=== PATIENT | female | born 1975 | race Caucasian/White ===

== ENCOUNTER 2018-08-19 17:53 | Emergency (ER) | payer BC ==
[2018-08-19 18:20] VITALS: BP 136/93
[2018-08-19] MEDS ORDERED: Ketorolac 60 MG/2 ML SDV IM ONE (19:36)
--- NOTE | 2018-08-19 19:40 | EDM.PDOC ---
ED HPI GENERAL MEDICAL PROBLEM - General Chief Complaint: Neck Problem Stated Complaint: BACK PAIN NEEDS MEDS Time Seen by Provider: 08/19/18 19:15 Source of Information: Reports: Patient History Limitations: Reports: No Limitations - History of Present Illness INITIAL COMMENTS - FREE TEXT/NARRATIVE: His is a 43-year-old female. She has severe pain in her upper extremity. She says it feels like it did when he had diffuse her C6-C7 vertebrae back in 2013. She says she has sharp pain within a dull throbbing pain that seems to run down into her ventral forearm and occasionally she gets numbness and tingling in her ring and middle finger. The only relief she seems to get this when she takes her right arm and puts it up and rested up over her head. She saw a chiropractor 2 yesterday who told her he thought she had a ruptured disc. She went and saw a local provider who ordered an MRI of her cervical spine. Apparently she got a Toradol shot yesterday that seemed to take the edge off the pain but did not make the pain go away. She is back tonight because she is having continued pain in the right upper extremity and her right side of her neck. I looked up the MRI of her cervical spine that showed diffuse degenerative changes in all aspects of her cervical spine if findings much worse than they were from her previous MRI of her cervical spine. The area of more concern is C5 -C6 C6-C7 where she seems to have moderate neural foraminal stenosis on the right. Above this she has moderate left-sided neural foraminal stenosis but she isn't having no left upper extremity symptoms. Neck Pain Score (Numeric/FACES): 10 - Related Data Allergies Allergy/AdvReac Type Severity Reaction Status Date / Time codeine Allergy Other Verified 01/19/16 07:07 topiramate [From Topamax] Allergy Other Verified 01/19/16 07:07 Home Meds: Home Meds Albuterol Sulfate [Proair Hfa] 2 puff INH ASDIRECTED 08/19/18 [History] Aspirin [Halfprin] 81 mg PO DAILY 08/19/18 [History] Celecoxib 100 mg PO DAILY 08/19/18 [History] Cyclobenzaprine [Flexeril] 10 mg PO ASDIRECTED 08/19/18 [History] Diethylpropion HCl [Diethylpropion] 25 mg PO DAILY 08/19/18 [History] Ibuprofen [Motrin] 600 mg PO ASDIRECTED 08/19/18 [History] Insulin Glargine,Hum.Rec.Anlog [Toujeo Solostar] 20 unit INJECT DAILY 08/19/18 [ History] LORazepam [Ativan] 1 mg PO DAILY PRN 08/19/18 [History] Liraglutide [Victoza] 18 mg INJECT DAILY 08/19/18 [History] Lisinopril 5 mg PO DAILY 08/19/18 [History] Loratadine [Claritin] 10 mg PO DAILY 08/19/18 [History] Phentermine HCl 30 mg PO DAILY 08/19/18 [History] Propranolol HCl [Inderal Xl] 80 mg PO DAILY 08/19/18 [History] Venlafaxine [Effexor] 150 mg PO DAILY 08/19/18 [History] Zolpidem Tartrate [Ambien] 5 mg PO ASDIRECTED 08/19/18 [History] atorvaSTATin Calcium [Lipitor] 20 mg PO DAILY 08/19/18 [History] metFORMIN [Glucophage XR] 2,000 mg PO DAILY 08/19/18 [History] predniSONE [Prednisone] 20 mg PO ASDIRECTED 08/19/18 [History] traMADol [Ultram] 50 mg PO Q6H PRN #20 tab 08/19/18 [Rx] Past Medical History Musculoskeletal History: Reports: Other (See Below) Other Musculoskeletal History: C6-7 fusion Psychiatric History: Reports: Anxiety, Depression Endocrine/Metabolic History: Reports: Diabetes, Type II - Past Surgical History Female Surgical History: Reports: Section, Tubal Ligation Musculoskeletal Surgical History: Reports: Carpal Tunnel Social & Family History - Tobacco Use Smoking Status *Q: Former Smoker Used Tobacco, but Quit: Yes Month/Year Tobacco Last Used: 1 yr - Caffeine Use Caffeine Use: Reports: Coffee, Soda, Tea - Recreational Drug Use Recreational Drug Use: No ED ROS GENERAL - Review of Systems Review Of Systems: See Below Constitutional: Denies: Fever, Chills HEENT: Reports: No Symptoms Respiratory: Reports: No Symptoms Cardiovascular: Reports: No Symptoms Endocrine: Reports: No Symptoms GI/Abdominal: Reports: No Symptoms : Reports: No Symptoms Musculoskeletal: Reports: Neck Pain, Arm Pain Skin: Reports: No Symptoms Neurological: Reports: Other (Radicular symptoms in the right upper extremity) Psychiatric: Reports: No Symptoms Hematologic/Lymphatic: Reports: No Symptoms ED EXAM, UPPER BACK/NECK PAIN - Physical Exam Exam: See Below Exam Limited By: No Limitations General Appearance: Alert, WD/WN, Mild Distress Eye Exam: Bilateral Eye: Normal Inspection Ears Exam: Normal External Exam Nose Exam: Normal Inspection Throat/Mouth Exam: Normal Inspection, Normal Lips, Normal Voice, No Airway Compromise Head Exam: Normocephalic Neck Exam: Other (She is markedly tender at the base of the right side of her neck with palpation though I cannot reproduce the pain that runs down her right arm, she has no midline spine tenderness and she does not appear to have left sided neck tenderness. She does move her neck rotation and lateral bending very carefully but she will do it.) Cardiovascular/Respiratory: Regular Rate, Rhythm, No Respiratory Distress Back Exam: Full Range of Motion Extremities: Normal Inspection, Normal Range of Motion, Other (She complains of a dull throbbing pain that runs down her right arm though she is a little unspecific as to were runs, sometimes seems to run down the dorsal side of her arm to her forearm and sometimes to the axilla into the ventral side. She still appears to have sensation in her fingertips and no particular numbness and tingling presently in the ER. She still has full function of her right upper extremity though she states it feels weak) Neurologic: Alert, Normal Mood/Affect, Oriented x 3 Skin Exam: Normal Color, Warm/Dry Course - Vital Signs Last Recorded V/S: Last Vital Signs Temp 98.4 F 08/19/18 18:18 Pulse 116 H 08/19/18 18:18 Resp 20 08/19/18 18:18 BP 136/93 H 08/19/18 18:18 Pulse Ox 97 08/19/18 18:18 - Orders/Labs/Meds Meds: Medications Discontinued Medications Generic Name Dose Route Start Last Admin Trade Name Aung PRN Reason Stop Dose Admin Ketorolac Tromethamine 60 mg 08/19/18 19:36 08/19/18 19:49 Toradol IM 08/19/18 19:37 60 mg ONETIME ONE Administration - Re-Assessments/Exams Free Text/Narrative Re-Assessment/Exam: 08/19/18 20:13 I went over the MRI scan with the patient explaining to her the degenerative changes that were found and that she will need to follow up with her provider on Wednesday and I suspect he'll probably send her to a neurosurgeon as a consult to see if there is anything they need to do. The patient understands this. Departure - Departure Time of Disposition: 19:37 Disposition: Home, Self-Care 01 Condition: Fair Clinical Impression: Cervical radiculopathy at C8, Cervical radiculopathy due to degenerative joint disease of spine, Right upper limb pain - Discharge Information *PRESCRIPTION DRUG MONITORING PROGRAM REVIEWED*: Not Applicable *COPY OF PRESCRIPTION DRUG MONITORING REPORT IN PATIENT [place]: Not Applicable Prescriptions: traMADol [Ultram] 50 mg PO Q6H PRN #20 tab PRN Reason: Pain Instructions: Cervical Radiculopathy Referrals: Ashwini Kraft MD [Primary Care Provider] - Forms: ED Department Discharge Additional Instructions: Take the tramadol as needed for the pain, use an ice pack to your neck and shoulder to help with the pain, positioning her right arm as often as possible to help relieve and take the edge off the pain. Follow-up with Cecilia Quinones on Wednesday for recheck and review of the MRI, return to the ER if needed
== END 2018-08-19 19:52 | disposition home or self-care (01) ==
LOC: JD.ED 17:53
DX: M54.12 Radiculopathy, cervical region (principal); M47.9 Spondylosis, unspecified; M79.601 Pain in right arm; F41.9 Anxiety disorder, unspecified; F32.9 Major depressive disorder, single episode, unspecified; E11.9 Type 2 diabetes mellitus without complications; Z87.891 Personal history of nicotine dependence; Z88.5 Allergy status to narcotic agent; Z88.8 Allergy status to other drugs, medicaments and biological substances; Z79.82 Long term (current) use of aspirin; Z79.899 Other long term (current) drug therapy; Z79.4 Long term (current) use of insulin
CPT/HCPCS: 96372; 99283; J1885

== ENCOUNTER 2024-06-13 06:15 | Day surgery (SDC) | payer BC ==
[~2024-06-13 06:15] MED LIST: Lactated Ringers 1,000 ML IV SCH; Lidocaine 1%/Sod Bicarbonate in NS 8.4% 1 ML Syringe IDERM PRN; Sodium Chloride 0.9% 10 ML Syringe FLUSH PRN; Sodium Chloride 0.9% 10 ML Syringe FLUSH SCH
[2024-06-13] MEDS: Lactated Ringers 1,000 ML IV SCH (06:23)
[2024-06-13] MEDS ORDERED: Acetaminophen 325 MG Tab PO ONE (06:39)
[2024-06-13] MEDS ORDERED: Dexamethasone 4 MG/ML 5 ML MDV ONE (06:39)
[2024-06-13] MEDS ORDERED: Midazolam 1 MG/ML 2 ML SDV ONE (06:39)
[2024-06-13] MEDS ORDERED: Propofol 200 MG/20 ML SDV ONE ×2 (06:39→08:43)
[2024-06-13] MEDS ORDERED: Rocuronium 50 MG/5 ML Vial ONE ×2 (06:39→08:22)
[2024-06-13] MEDS ORDERED: Lidocaine 1% 5 ML VIAL ONE (06:39)
[2024-06-13] MEDS ORDERED: Ondansetron 4 MG/2 ML SDV ONE (06:39)
[2024-06-13] MEDS ORDERED: fentaNYL 250 MCG/5 ML SDV ONE (06:39)
[2024-06-13 06:46] LABS: BASOPHILS ABSOLUTE AUTO 0.1 K/mm3 (0.0-0.2); BASOPHILS PERCENT AUTO 0.7 % (0.0-1.0); EOSINOPHILS ABSOLUTE AUTO 0.3 K/mm3 (0.0-0.4); EOSINOPHILS PERCENT AUTO 4.6 % (0.0-6.0); HEMATOCRIT 38.9 % (37.0-47.0); HEMOGLOBIN 12.8 gm/dl (12.0-16.0); IMMATURE GRAN ABSOLUTE AUTO 0.05 K/mm3 (0.00-0.05); IMMATURE GRAN PERCENT AUTO 0.7 % (0.0-0.4); LYMPHOCYTES ABSOLUTE AUTO 2.2 K/mm3 (1.0-4.8); LYMPHOCYTES PERCENT AUTO 31.5 % (24.0-44.0); MEAN CORPUSCULAR HEMOGLOBIN 27.4 pg (28.0-32.0); MEAN CORPUSCULAR HGB CONC 32.9 g/dl (32.0-36.0); MEAN CORPUSCULAR VOLUME 83.1 fl (83.0-99.0); MEAN PLATELET VOLUME 8.7 fl (9.4-12.3); MONOCYTES ABSOLUTE AUTO 0.6 K/mm3 (0.0-0.8); NEUTROPHILS ABSOLUTE AUTO 3.8 K/mm3 (1.8-7.7); NEUTROPHILS PERCENT AUTO 54.5 % (41.0-71.0); PLATELET COUNT,PLT 276 K/mm3 (150-400); RED BLOOD CELL COUNT 4.68 M/mm3 (4.10-5.30); WHITE BLOOD CELL COUNT,WBC 6.99 K/mm3 (3.9-11.3)
[2024-06-13 07:05] LABS: ANION GAP 16.2 (5-15); BUN/CREATININE RATIO 18.8 (14-18); CALCIUM 9.3 mg/dL (8.5-10.1); CREATININE 0.8 mg/dL (0.55-1.02); EST CRCL DRUG DOSING (CG) 74.26 mL/min; POTASSIUM,K 4.2 mEq/L (3.5-5.1)
[2024-06-13] MEDS ORDERED: ceFAZolin 2 GM Vial ONE (07:46)
[2024-06-13] MEDS ORDERED: Phenylephrine 1% 10 MG/ML SDV ONE (07:54)
[2024-06-13] MEDS ORDERED: Lactated Ringers 1,000 ML ONE (07:56)
[2024-06-13] MEDS ORDERED: HYDROmorphone 0.5 MG/0.5 ML Syringe ONE (08:25)
[2024-06-13] MEDS ORDERED: fentaNYL 100 MCG/2 ML SDV IVPUSH PRN (08:59)
[2024-06-13] MEDS ORDERED: Sugammadex Sodium 200 MG/2 ML VIAL IV ONE (09:23)
[2024-06-13] MEDS ORDERED: Ketorolac 30 MG/ML SDV ONE (09:23)
[2024-06-13] MEDS: oxyCODONE 5 MG Tab PO ONE (12:05)
[2024-06-13] MEDS: Bupivacaine 0.25% 10 ML SDV ONE (13:31)
[2024-06-13] MEDS: EPINEPHrine 1 MG/ML SDV ONE (13:33)
[2024-06-13] MEDS: Bupivacaine 0.5% 30 ML SDV ONE (13:36)
[2024-06-13 14:34] VITALS: BP 135/72; PULSE 77
== END 2024-06-13 14:15 ==
LOC: JD.SDS 06:15
PROVIDERS: ATTEND Obstetrics & Gynecology
DX: N84.0 Polyp of corpus uteri (principal); N73.6 Female pelvic peritoneal adhesions (postinfective); E11.9 Type 2 diabetes mellitus without complications; G47.33 Obstructive sleep apnea (adult) (pediatric); K21.9 Gastro-esophageal reflux disease without esophagitis; Z87.891 Personal history of nicotine dependence; Z79.4 Long term (current) use of insulin; Z79.899 Other long term (current) drug therapy
CPT/HCPCS: 36415; 58550; 80048; 85025; 86850; 86900; 86901; A9270; J0171; J0665; J0690; J1100; J1171; J1885; J2250; J2371; J2405; J2704; J3010; J3490; J7120; 00944